=== PATIENT | female | born 1970 | race African-American/Black ===

== ENCOUNTER 2018-12-21 13:01 | Emergency (ER) | payer OTHER ==
[~2018-12-21] VITALS: Ht 172.7 cm; Wt 115.4 kg
[2018-12-21] MEDS ORDERED: KETOROLAC TROMETHAMINE 30 MG/ML VIAL IM STA (13:44)
[2018-12-21] MEDS ORDERED: KETOROLAC TROMETHAMINE 60 MG/2 ML VIAL ONE (13:54)
[2018-12-21] MEDS ORDERED: METOPROLOL TART50 MG PO (13:59)
[2018-12-21] MEDS ORDERED: METFORMIN HCL500 MG PO (13:59)
[2018-12-21] MEDS ORDERED: HYDROCHLOROTHIA25 MG (13:59)
--- NOTE | 2018-12-21 14:25 | Diagnostic Imaging Report ---
Exam: Left knee 3 views History: pain Comparison: None. Findings: No fracture or malalignment. Joint spaces preserved. Mild calcification with in the MCL from prior trauma. Impression: No acute osseous abnormality Signed by: Dr. Vipin Garcia M.D. on 12/21/2018 2:21 PM
[2018-12-21 14:57] VITALS: BP 139/86
== END 2018-12-21 15:16 | disposition home or self-care (01) ==
LOC: FSED 13:01
DX: M79.662 Pain in left lower leg (principal); I10 Essential (primary) hypertension; E11.9 Type 2 diabetes mellitus without complications
CPT/HCPCS: 73562; 96372; 99283; J1885 ×2